=== PATIENT | female | born 1980 | race Caucasian/White ===

== ENCOUNTER 2017-11-27 08:24 | Emergency (ER) | payer MEDICAID ==
[2017-11-27 08:52] VITALS: RESP 20
--- NOTE | 2017-11-27 09:18 | C.PDOC ---
History Of Present Illness NVD SINCE 199. ONSET AFTER EATING SHRIMP. NO FEVER. +ABD CRAMPING. BILIOUS, DENIES HEMETEMSIS. +WATERY BM. EXAM MOD DIST +ACTIVE VOMITING ABD MILD GEN TEND SOFT NO R/G POOR TURGOR CV RRR TACHY REMAINDER NEG Time Seen by Provider: 11/27/17 09:18 Chief Complaint (Nursing): GI Problem History Per: Patient History/Exam Limitations: no limitations Onset/Duration Of Symptoms: Hrs Current Symptoms Are (Timing): Still Present Severity: Moderate Past Medical History Reviewed: Historical Data, Nursing Documentation, Vital Signs Vital Signs: Last Vital Signs Temp 100.9 F H 11/27/17 12:20 Pulse 111 H 11/27/17 12:20 Resp 20 11/27/17 12:20 BP 113/82 11/27/17 12:20 Pulse Ox 99 11/27/17 12:20 - Medical History PMH: Fractures (Left Humerus) Other Surgeries: Hx of orthopedic surgery - [facility] Procedures APPLICATION OF SPLINT (05/14/14) Family History: States: No Known Family Hx - Social History Hx Tobacco Use: No Hx Alcohol Use: Yes Hx Substance Use: No - Immunization History Hx Tetanus Toxoid Vaccination: No Hx Influenza Vaccination: No Hx Pneumococcal Vaccination: No Review Of Systems Except As Marked, All Systems Reviewed And Found Negative. Constitutional: Negative for: Fever, Chills Gastrointestinal: Positive for: Nausea, Vomiting, Diarrhea. Negative for: Hematemesis Physical Exam - Physical Exam Appears: Non-toxic, Other (moderate distress, active vomiting) Skin: Normal Color, Warm, Other (poor turgor) Head: Atraumatic, Normacephalic Eye(s): bilateral: Normal Inspection Cardiovascular: Other (RRR, tachycardiac) Gastrointestinal/Abdominal: Normal Exam, Soft, Tenderness (mild general tenderness), No Guarding, No Rebound Neurological/Psych: Oriented x3, Normal Speech, Normal Motor, Normal Sensation ED Course And Treatment - Laboratory Results Result Diagrams: 11/27/17 10:46 11/27/17 10:46 O2 Sat by Pulse Oximetry: 97 (RA) Pulse Ox Interpretation: Normal Progress - Re-Evaluation Re-evaluation Note: 11/27/17 12:39 +UO. PS FEELING BETTER. TOLERATING PO WO DIFF. ADVISED POSSIBLILTY OF FLU, OFFERED TAMIFLU. PT DOESNT WANT. AGREES TO NAUSEA MEDS ONLY - Data Reviewed Data Reviewed: Lab Medical Decision Making Medical Decision Making: Plan --Labs --IV Fluids Disposition Counseled Patient/Family Regarding: Studies Performed, Diagnosis, Need For Followup, Rx Given - Disposition Referrals: YOUR,PMD [Other] Disposition: HOME/ ROUTINE Disposition Time: 12:40 Condition: IMPROVED Prescriptions: Ondansetron [Zofran Odt] 4 mg PO TID PRN #9 odt PRN Reason: Nausea/Vomiting Instructions: Nausea and Vomiting, Adult, Diarrhea in Adolescents and Adults, Flu, Adult (DC) Forms: [employer] (Polish) - Clinical Impression Clinical Impression: Vomiting and diarrhea, Influenza-like illness - Scribe Statement The provider has reviewed the documentation as recorded by the Cjibstephanie Dawson Provider Attestation: All medical record entries made by the Scribe were at my direction and personally dictated by me. I have reviewed the chart and agree that the record accurately reflects my personal performance of the history, physical exam, medical decision making, and the department course for this patient. I have also personally directed, reviewed, and agree with the discharge instructions and disposition.
[2017-11-27] MEDS ORDERED: Sodium Chloride 0.9% 1,000 ML IV ONE (09:53)
[2017-11-27 11:01] LABS: BASO % 0.5 % (0.0-2.0); EOS # 0.3 K/uL (0.0-0.7); EOS % 3.9 % (0.0-4.0); HEMOGLOBIN 13.3 g/dL (11.0-16.0); LYMPH # 0.2 K/uL (1.0-4.3); LYMPH % 3.2 % (20.0-40.0); MEAN CELL VOLUME 91.3 fL (81.0-99.0); MEAN CORPUSCULAR HGB CONC 33.9 g/dL (33.0-37.0); MEAN PLATELET VOLUME 8.1 fL (7.2-11.7); MONO # 0.5 K/uL (0.0-0.8); MONO % 6.1 % (0.0-10.0); NEUT # 6.4 K/uL (1.8-7.0); NEUT % 86.3 % (50.0-75.0); NRBC % 0.1 % (0.0-2.0); PLATELET COUNT 370 K/uL (130-400); RBC 4.29 Mil/uL (3.80-5.20); RED CELL DISTRIBUTION WIDTH 12.4 % (11.5-14.5); WHITE BLOOD COUNT 7.4 K/uL (4.8-10.8)
[2017-11-27 11:12] LABS: BLOOD UREA NITROGEN 14 mg/dL (7-17); CALCIUM 8.9 mg/dl (8.6-10.4); GFR AFRICAN-AMERICAN > 60; GFR NON-AFRICAN AMERICAN > 60
[2017-11-27 11:34] LABS: EOSINOPHIL 1 % (0-4); LYMPHOCYTE 5 % (20-40); MONOCYTE 7 % (0-10); NEUTROPHIL 87 % (50-75); TOTAL CELLS COUNTED 100
[2017-11-27 11:35] LABS: PLATELET ESTIMATE NORMAL (NORMAL)
[2017-11-27 12:22] VITALS: BP 113/82; PULSE 111; TEMP 100.9
[2017-11-27 12:41] VITALS: O2SAT 97
== END 2017-11-27 13:04 | disposition home or self-care (01) ==
LOC: C.ER 08:24
DX: J11.1 Influenza due to unidentified influenza virus with other respiratory manifestations (principal); R11.10 Vomiting, unspecified; R19.7 Diarrhea, unspecified
CPT/HCPCS: 36415; 80048; 85025; 96360; 96372; 99285; J2550; J7040

== ENCOUNTER 2018-02-19 18:11 | Emergency (ER) | payer MEDICAID ==
[2018-02-19 18:14] VITALS: BMI 20.5
[2018-02-19 18:18] VITALS: O2SAT 100
[2018-02-19] MEDS ORDERED: Oxycodone/Acetaminophen 5/325 mg Tab PO STA (19:34)
[2018-02-19 19:47] VITALS: BP 122/74; PULSE 78; RESP 18; TEMP 98.2
--- NOTE | 2018-02-19 19:51 | C.PDOC ---
History Of Present Illness 37 y/o female presents to the ED for evaluation of right ankle injury. Patient states she missed a step and twisted her ankle yesterday. Now complaining of worsening pain to the ankle. No changes in sensation. Time Seen by Provider: 02/19/18 18:24 Chief Complaint (Nursing): Lower Extremity Problem/Injury History Per: Patient History/Exam Limitations: no limitations Onset/Duration Of Symptoms: Days Current Symptoms Are (Timing): Still Present Past Medical History Reviewed: Historical Data, Nursing Documentation, Vital Signs Vital Signs: Last Vital Signs Temp 98.2 F 02/19/18 19:46 Pulse 78 02/19/18 19:46 Resp 18 02/19/18 19:46 BP 122/74 02/19/18 19:46 Pulse Ox 100 02/19/18 20:55 - Medical History PMH: Fractures (Left Humerus) - [facility] Procedures APPLICATION OF SPLINT (05/14/14) Family History: States: Unknown Family Hx - Social History Hx Tobacco Use: No Hx Alcohol Use: Yes Hx Substance Use: No - Immunization History Hx Tetanus Toxoid Vaccination: No Hx Influenza Vaccination: No Hx Pneumococcal Vaccination: No Review Of Systems Except As Marked, All Systems Reviewed And Found Negative. Musculoskeletal: Positive for: Foot Pain (right ankle) Neurological: Negative for: Weakness, Numbness Physical Exam - Physical Exam Appears: Non-toxic, No Acute Distress Skin: Normal Color, Warm, Dry Head: Atraumatic, Normacephalic Eye(s): bilateral: Normal Inspection, PERRL, EOMI Oral Mucosa: Moist Chest: Symmetrical Respiratory: No Accessory Muscle Use Extremity: Tenderness (across the right ankle), No Deformity, No Swelling Pulses: Left Dorsalis Pedis: Normal, Right Dorsalis Pedis: Normal Neurological/Psych: Oriented x3, Normal Speech, Normal Motor, Normal Sensation ED Course And Treatment O2 Sat by Pulse Oximetry: 100 (RA) Pulse Ox Interpretation: Normal - Other Rad XR R ANKLE X-Ray: Interpreted by Me, Viewed By Me Interpretation: No fracture, no dislocation Progress Note: Patient treated with Motrin PO. X-ray ordered to rule out acute bony deformity. Patient complains of persistent pain, given 1 tab Percocet and Tylenol PO. X-ray negative. Patient given posterior splint that was applied by CP and checked by me and referral to ortho for follow up. Crutches provided for ambulation. Disposition Counseled Patient/Family Regarding: Studies Performed, Diagnosis, Need For Followup - Disposition Referrals: Aj Will MD [Staff Provider] - Disposition: HOME/ ROUTINE Disposition Time: 19:50 Condition: STABLE Additional Instructions: Follow up with Orthopedist within 1-2 days. Return to ED if feel worse. 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 - Scribe Statement The provider has reviewed the documentation as recorded by the Scribe (Dionne Tipton) All medical record entries made by the Scribe were at my direction and personally dictated by me. I have reviewed the chart and agree that the record accurately reflects my personal performance of the history, physical exam, medical decision making, and the department course for this patient. I have also personally directed, reviewed, and agree with the discharge instructions and disposition.
--- NOTE | 2018-02-20 09:35 | RAD ---
PROCEDURE: Right Ankle Radiographs. HISTORY: ankle injury COMPARISON: None FINDINGS: BONES: Normal. No fracture. JOINTS: Normal. No osteoarthritis. Ankle mortise maintained. Talar dome intact SOFT TISSUES: Normal. OTHER FINDINGS: None. IMPRESSION: Normal right ankle radiographs.
== END 2018-02-19 20:10 | disposition home or self-care (01) ==
LOC: C.ER 18:11
DX: S93.401A Sprain of unspecified ligament of right ankle, initial encounter (principal); X50.1XXA Overexertion from prolonged static or awkward postures, initial encounter; Y92.9 Unspecified place or not applicable

== ENCOUNTER 2018-07-30 11:41 | Emergency (ER) | payer MEDICAID ==
[2018-07-30 11:41] VITALS: BMI 20.5
[2018-07-30 11:56] VITALS: BP 130/82; PULSE 95; TEMP 97.9; O2SAT 98
--- NOTE | 2018-07-30 12:30 | C.PDOC ---
History Of Present Illness 37 y/o female with no significant PMH presents to ED c/o right breast pain x 1 day. Pt describes worsening throbbing right-sided breast pain worst under the nipple with associated swelling and palpable lump. Pt has never experienced these symptoms before. She has not taken anything for pain. LMP 07/08/18. Denies nipple discharge, nipple drainage, left breast pain, fevers, chills, rash, headache, abdominal pain, N/V, urinary symptoms, vaginal bleeding, vaginal discharge. Chief Complaint (Nursing): Breast Problem Past Medical History Reviewed: Historical Data, Nursing Documentation, Vital Signs Vital Signs: Last Vital Signs Temp 97.9 F 07/30/18 11:49 Pulse 95 H 07/30/18 11:49 Resp 17 07/30/18 11:49 BP 130/82 07/30/18 11:49 Pulse Ox 98 07/30/18 11:49 - Medical History PMH: Cardia Arrhythmia, Fractures (Left Humerus) - [facility] Procedures APPLICATION OF SPLINT (05/14/14) Family History: States: Unknown Family Hx - Social History Hx Tobacco Use: No Hx Alcohol Use: Yes Hx Substance Use: No - Immunization History Hx Tetanus Toxoid Vaccination: No Hx Influenza Vaccination: No Hx Pneumococcal Vaccination: No Review Of Systems Except As Marked, All Systems Reviewed And Found Negative. Constitutional: Negative for: Fever, Chills, Sweats Eyes: Negative for: Pain, Vision Change ENT: Negative for: Ear Pain, Nose Pain, Mouth Pain, Throat Pain Cardiovascular: Negative for: Chest Pain, Palpitations Respiratory: Negative for: Cough, Shortness of Breath Gastrointestinal: Negative for: Nausea, Vomiting, Abdominal Pain, Diarrhea, Constipation Genitourinary: Positive for: Other (right breast pain, nipple redness and swelling). Negative for: Dysuria, Frequency, Vaginal Discharge, Vaginal Bleeding Musculoskeletal: Negative for: Neck Pain, Shoulder Pain, Arm Pain, Back Pain, Hand Pain Skin: Negative for: Rash, Bruising Neurological: Negative for: Weakness, Numbness, Incoordination, Headache, Dizziness Physical Exam - Physical Exam Appears: Well, No Acute Distress Skin: Normal Color, Warm, Dry, No Ecchymosis Head: Atraumatic, Normacephalic Eye(s): bilateral: Normal Inspection, PERRL, EOMI Ear(s): Bilateral: Normal Nose: Normal Oral Mucosa: Moist Tongue: Normal Appearing Lips: Normal Appearing Teeth: Normal Dentition Gingiva: Normal Appearing Throat: Normal Neck: Normal Lymphatic: Normal Exam, No Adenopathy Chest: Symmetrical, No Deformity, No Tenderness Cardiovascular: Rhythm Regular Respiratory: Normal Breath Sounds, No Decreased Breath Sounds Gastrointestinal/Abdominal: Normal Exam, Bowel Sounds, Soft, No Tenderness Back: Normal Inspection, No Decreased ROM, No Paraspinal Tenderness Extremity: Normal ROM Extremity: Bilateral: Atraumatic, No Pedal Edema, Normal Color And Temperature, Normal ROM Pulses: Left Radial: Normal, Right Radial: Normal Neurological/Psych: Oriented x3, Normal Speech, Normal Cognition, Normal Cranial Nerves, Normal Motor, Normal Sensation Gait: Steady Additional Physical Exam Comments: Breast Exam: Left breast - normal inspection: no swelling, redness, nipple discharge; no tenderness; no masses Right breast - swollen, red nipple; normal breast skin inspection: no redness, swelling; nipple tender; no mass appreciated. ED Course And Treatment O2 Sat by Pulse Oximetry: 98 Medical Decision Making Medical Decision Making: Initial Plan: --Ibuprofen --Right breast ultrasound to r/o abscess Pt reports decreased pain after medication. Pt allergic to PCN, will replace with Clindamycin for treatment of mastitis Ultrasound: Limited ductal ectasia in retroareolar space. No abscess, no cysts. BIRADS 2; normal mammography screening recommended Impression: Mastitis Plan: --Clindamycin (first dose here) --Ibuprofen for pain as needed --Followup with OBGYN/PMD within 2 days --Return if symptoms worsen or persist Disposition - Disposition Referrals: Brooklyn Sosa MD [Staff Provider] - [facility] [Outside] Disposition: HOME/ ROUTINE Disposition Time: 13:30 Condition: IMPROVED Additional Instructions: Take Clindamycin every 8 hours for 10 days Take ibuprofen every 6 hours with food as needed for pain Followup with primary or OBGYN within 2 days Return to ER for worsening symptoms Prescriptions: Clindamycin [Cleocin] 450 mg PO Q8H 10 Days #29 cap Instructions: Cellulitis (ED), Breast Care for the Non-breast Feeding Woman (ED) Forms: [facility] (Romansh), Work Excuse - Clinical Impression Clinical Impression: Mastitis
--- NOTE | 2018-07-30 13:51 | US ---
Date of service: 07/30/2018 HISTORY: Patient is a 37-year-old female presenting with right breast pain and nipple edema. COMPARISON: None available. TECHNIQUE: Ultrasound right breast was performed throughout all 4 quadrants including retroareolar axillary tail components utilizing linear high-frequency transducer in longitudinal and transverse projections with color Doppler technique added. FINDINGS: RIGHT BREAST: Examination is remarkable for limited ductal ectasia in the retroareolar space which is otherwise unremarkable. No definitive cystic or solid parenchymal mass is appreciated throughout the examination including the axillary tail. There is no significant lymphadenopathy including at the right axilla. IMPRESSION: Limited ductal ectasia in the retroareolar space. Exam is otherwise unremarkable. No abscess or other fluid collection is appreciated. No definitive cystic or solid parenchymal mass identified. BIRAD: BIRADS 2 Benign finding Recommendation: Continue annual screening mammography, as per ACR guidelines.
[2018-07-30 14:16] VITALS: RESP 20
== END 2018-07-30 14:16 | disposition home or self-care (01) ==
LOC: C.ER 11:41
DX: N61.0 Mastitis without abscess (principal)